=== PATIENT | male | born 1945 | race Caucasian/White ===

== ENCOUNTER 2016-10-21 10:07 | Inpatient (IN) | payer OTHER ==
[2016-10-03 10:24] VITALS: BMI 31.0
--- NOTE | 2016-10-03 11:03 | PAT Medication Instructions ---
Service Date Oct 03, 2016. Current Home Medication List Aspirin (Aspirin Ec), 81 MG PO QAM Atorvastatin (Lipitor), 40 MG PO QPM Cholecalciferol (Vitamin D3), 1 TAB PO QPM Lisinopril (Zestril), 10 MG PO QAM Lisinopril (Zestril), 20 MG PO QPM Metoprolol Tartrate (Lopressor) (Lopressor), 50 MG PO BID Multivitamin (Multivitamin), 1 TAB PO QAM Medication Instructions For Your Scheduled Surgery - Hold the following medications the morning of surgery: Multivitamin (Multivitamin), 1 TAB PO QAM Cholecalciferol (Vitamin D3), 1 TAB PO QPM Lisinopril (Zestril), 10 MG PO QAM - Take the following medications the morning of surgery with a sip of water: Metoprolol Tartrate (Lopressor) (Lopressor), 50 MG PO BID Aspirin (Aspirin Ec), 81 MG PO QAM (okay to continue per surgeon) - Take the following medications as scheduled the night before surgery: Lisinopril (Zestril), 20 MG PO QPM - Take the following medications as scheduled the night before surgery: Metoprolol Tartrate (Lopressor) (Lopressor), 50 MG PO BID Atorvastatin (Lipitor), 40 MG PO QPM If you have any questions please call us at [phone] (Bernie Lou PA-C) or [phone] or [phone]
[2016-10-03 11:39] LABS: BASO % 0.9 %; BASO ABS # 0.07 K/uL (0-0.2); COMPLETE YES; EOS % 1.6 %; HEMATOCRIT 38.5 % (42-52); IG% 0.4 %; LYMPH % 20.2 %; MEAN CELL VOLUME 92.1 fL (80-100); MEAN CORPUSCULAR HEMOGLOBIN 32.1 pg (25-34); MEAN CORPUSCULAR HGB CONC 34.8 g/dl (32-36); MEAN PLATELET VOLUME 10.1 fL (7.4-10.4); MONO % 15.7 %; NEUT % 61.2 %; PLATELET COUNT 233 K/uL (130-400); RED BLOOD COUNT 4.18 M/uL (4.7-6.1); WHITE BLOOD COUNT 7.92 K/uL (4.8-10.8)
[2016-10-03 11:41] LABS: URINE APPEARANCE CLEAR (CLEAR); URINE BILIRUBIN NEG (NEG); URINE COLOR DK YELLOW; URINE NITRITE NEG (NEG); URINE PH 5.5 (4.5-7.5); URINE SPECIFIC GRAVITY 1.018 (1.000-1.030); UROBILINOGEN NEG (NEG); ZZUR CULT IF INDIC CLEAN CATCH NO
[2016-10-03 11:42] LABS: MANUAL MICROSCOPIC REQUIRED? NO; REVIEW REQ? NO
[2016-10-03 11:55] LABS: INR 1.1 (0.9-1.1); PROTHROMBIN TIME (PATIENT) 11.8 SECONDS (9.0-12.0)
--- NOTE | 2016-10-03 11:56 | DIAGNOSTIC IMAGING REPORT ---
CHEST PREADMISSION(PA/LAT) CLINICAL HISTORY: Preoperative evaluation. COMPARISON STUDY: No previous studies for comparison. FINDINGS: Lung volumes are normal. Lungs are clear. There is no pneumothorax or pleural effusion. Pulmonary vascularity is normal. There are median sternotomy wires and clips from bypass grafting. Mild cardiomegaly is noted. IMPRESSION: 1. No acute cardiopulmonary findings. 2. Mild cardiomegaly. Electronically signed by: Saurav Lane M.D. 10/03/2016 11:54 AM Dictated Date/Time: 10/03/2016 11:53 AM
[2016-10-03 13:06] LABS: BUN/CREATININE RATIO 26.3 (10-20); CALCIUM 10.8 mg/dl (8.5-10.1); CREATININE 1.5 mg/dl (0.60-1.40); POTASSIUM 4.8 mmol/L (3.5-5.1)
--- NOTE | 2016-10-20 13:25 | HISTORY & PHYSICAL EXAMINATION ---
DATE OF ADMISSION: 10/21/2016 CHIEF COMPLAINT: Left hip pain. HISTORY OF PRESENT ILLNESS: Mr. River is a 70-year-old male with a multiple year history of pain in his left hip. The patient rates his pain at 5/10. He has pain with his daily activities. He has limited standing and walking tolerance. Pain is worse with weightbearing. The patient uses a cane to ambulate. He has had anti-inflammatories without relief. He has failed conservative treatment and is scheduled for left hip replacement. PAST MEDICAL HISTORY: Hypertension, hypercholesterolemia, and heart disease. He denies diabetes or DVT. PAST SURGICAL HISTORY: Triple bypass in 2012. SOCIAL HISTORY: He drinks 6 drinks per month. He denies tobacco use. He lives in a 2-story home. He is and retired. FAMILY HISTORY: Negative for DVT. Positive for CVA in his mother. MEDICATIONS: Aspirin 81 mg daily, multivitamin 1 daily, vitamin D3 1000 international units, lisinopril 10 mg, lisinopril 20 mg, atorvastatin 40 mg, calcium x1, metoprolol 50 mg twice daily. ALLERGIES: None. REVIEW OF SYSTEMS: See HPI. Ten other systems reviewed, all negative. PHYSICAL EXAMINATION: VITAL SIGNS: Height 5 feet 10 inches, weight 220 pounds, BMI is 32. GENERAL: This is a well-developed, well-nourished male who is alert and oriented x3. Mood and affect are appropriate. HEENT: Normocephalic, atraumatic. Mucous membranes are moist and intact. NECK: Supple without lymphadenopathy. HEART: Regular rate and rhythm without murmurs, rubs or gallops. Grade 2 systolic murmur. LUNGS: Clear to auscultation without wheezes or rhonchi. ABDOMEN: Soft and nontender. Bowel sounds are equal and active. EXTREMITIES: No ecchymosis, redness or warmth. Thigh and calf are soft and nontender. He walks with an antalgic gait. Range of motion of the hip reproduces pain in the groin. Range of motion is decreased. He is neurovascularly intact with +5/5 strength. X-RAY EXAMINATION: AP and lateral views show joint space narrowing and osteophyte formation. IMPRESSION: Degenerative joint disease, left hip. PLAN: The patient will be admitted for a left total hip arthroplasty. PCP is Dr. Luz. We will plan on aspirin for DVT prophylaxis.
[2016-10-21] VITALS (7 sets, daily range): BP systolic 117–153; BP diastolic 69–85; PULSE 61–87; TEMP 36.4–36.8; O2SAT 95–100; Ht 180.3 cm; Wt 101.5 kg
[~2016-10-21] VITALS: Ht 180.3 cm; Wt 101.5 kg
[2016-10-21] MEDS: TRANEXAMIC ACID INJ 1,000 MG in SODIUM CHLORIDE 0.9% 100ML 100 ML IV SCH ×2 (06:30→11:49)
[~2016-10-21 10:07] MED LIST: ACETAMINOPHEN 500 MG TAB PO SCH; ASPI81TA28 PO; ATOR-24 PO; BUPIVACAINE 0.5 % 5 MG/1 ML PF 10ML VIAL ONE; CEFAZOLIN 2000 MG/60 ML D5W 60 ML IV SCH; CeleBREX 200 MG CAP PO SCH; DEXAMETHASONE 4 MG TAB PO SCH; FAMOTIDINE 20 MG TAB PO SCH; GABAPENTIN 300 MG CAP PO SCH; LACTATED RINGER'S 1000ML 1,000 ML IV SCH; LISI-461 PO; LISI-725 PO; METO50TA16 PO; METOCLOPRAMIDE HCL 10 MG TAB PO SCH; MULT-506 PO; OXYCODONE HCL 10 MG TABCR (OXYCONTIN) PO SCH; POLYMYXIN B SULFATE 100,000 UNITS in NSS 100ML IR SCH; ROPIVACAINE 5MG/ML 30 ML 150 MG, BUPIVACAINE/EPINEPHR 0.5% MPF 30 ML, KETOROLAC TROMETH... INFIL SCH; VANCOMYCIN INJ 400 MG in NSS 100ML IR SCH; VTMD1000 PO
[2016-10-21] MEDS ORDERED: FENTANYL CITRATE INJ 50 MCG/1 ML 2 ML VIAL ONE (10:32)
[2016-10-21] MEDS ORDERED: LIDOCAINE HCL 2% 2 ML VIAL (20MG/ML) ONE (10:32)
[2016-10-21] MEDS ORDERED: MIDAZOLAM HCL 1 MG/ML 2ML VIAL ONE (10:32)
[2016-10-21] MEDS ORDERED: PROPOFOL IV EMULSION 10 MG/ML 20 ML VIAL IV ONE ×2 (10:32→13:55)
--- NOTE | 2016-10-21 11:23 | History & Physical Bridge Note ---
H&P Re-Evaluation Bridge Note: I have examined the patient, reviewed the History & Physical and in the interval since the performance of the History & Physical I have noted the following changes of clinical significance: No changes noted
[2016-10-21] MEDS ORDERED: POVIDONE-IODINE OP SOLN 30 ML BTL ONE (11:59)
[2016-10-21] MEDS ORDERED: ORTHO JOINT ANESTHETIC ONE (11:59)
[2016-10-21] MEDS ORDERED: BACITRACIN 50000 UNIT VIAL ONE (11:59)
[2016-10-21] MEDS ORDERED: EpHEDrine SULFATE 50MG/5ML SYR ONE (12:57)
[2016-10-21] MEDS ORDERED: DEXAMETHASONE SOD INJ 4 MG/ML VIAL ONE (12:58)
[2016-10-21] MEDS ORDERED: ONDANSETRON INJ 2 MG/ML 2 ML VIAL ONE (12:58)
[2016-10-21] MEDS ORDERED: PHENYLEPHRINE 100MCG/ML 5ML SYR IV PRN (14:00)
[2016-10-21] MEDS ORDERED: ONDANSETRON INJ 2 MG/ML 2 ML VIAL IV PRN ×2 (14:00→14:15)
[2016-10-21] MEDS ORDERED: ATROPINE SULFATE 0.1 MG/ML 5ML SYR IV PRN (14:00)
[2016-10-21] MEDS ORDERED: HYDROmorphone INJ 0.5 MG/0.5 ML SYR IV PRN (14:00)
[2016-10-21] MEDS ORDERED: KETOROLAC TROMETHAMINE 30 MG/ML VIAL IV. PRN (14:00)
--- NOTE | 2016-10-21 14:14 | [facility] Post Operative Brief Note ---
Immediate Operative Summary Operative Date Oct 21, 2016. Pre-Operative Diagnosis Left Hip Degenerative Joint Disease Post-Operative Diagnosis Left Hip Degenerative Joint Disease Procedure(s) Performed Left Total Hip Arthroplasty, Direct Anterior Approach Surgeon Dr. Manuel Sarkar Aerial Sprayer Surgeon(s) Ynes Mariee PA-C Estimated Blood Loss 125 mL Findings DJD Specimens A: Left Femoral Head Complication(s) None Disposition Recovery Room / PACU
[2016-10-21] MEDS ORDERED: ALUMINUM/MAGNESIUM/SIMETH (MAALOX MAX) 30 ML UDC PO PRN (14:15)
[2016-10-21] MEDS ORDERED: ZOLPIDEM TARTRATE 5 MG TAB PO PRN (14:15)
[2016-10-21] MEDS ORDERED: SOD PHOSPHATE/SOD BIPHOSPHATE ENEMA 132 ML BTL PR PRN (14:15)
[2016-10-21] MEDS ORDERED: OXYCODONE HCL IR 5 MG TAB (IMMEDIATE RELEASE) PO PRN (14:15)
[2016-10-21] MEDS ORDERED: METOCLOPRAMIDE HCL INJ 5 MG/ML 2 ML VIAL IV PRN (14:15)
[2016-10-21] MEDS ORDERED: TRAMADOL HCL 50 MG TAB PO PRN (14:15)
[2016-10-21] MEDS ORDERED: BISACODYL 10 MG SUPP PR PRN (14:15)
[2016-10-21] MEDS ORDERED: DiphenhydrAMINE HCL 50 MG/ML VIAL IV PRN (14:15)
[2016-10-21] MEDS ORDERED: MAGNESIUM HYDROXIDE SUSP 30 ML UDC PO PRN (14:15)
[2016-10-21] MEDS ORDERED: MoRPHine SULFATE 2 MG/ML CARP IV PRN (14:15)
--- NOTE | 2016-10-21 14:43 | DIAGNOSTIC IMAGING REPORT ---
INTRAOPERATIVE RADIOGRAPHS CLINICAL HISTORY: Left hip arthroplasty. Fluoroscopy time: 13 seconds. FINDINGS: 2 spot fluoroscopic views of the left hip from an arthroplasty procedure are presented. A bipolar left hip arthroplasty is in near anatomic alignment. A single cortical lag screw transfixes the acetabular cup. There is no evidence of acute fracture on these fluoroscopic images. IMPRESSION: Intraoperative image from a left hip arthroplasty procedure as above. Electronically signed by: Domingo Oneill M.D. 10/21/2016 2:41 PM Dictated Date/Time: 10/21/2016 2:40 PM
--- NOTE | 2016-10-21 14:59 | Anesthesiology Progress Note ---
Anesthesia Post Op Note Date & Time Oct 21, 2016 at 14:58 Vital Signs Pain Intensity: 0 Vital Signs Past 12 Hours Date Time Temp Pulse Resp B/P Pulse Ox O2 Delivery O2 Flow Rate FiO2 10/21/16 14:50 77 16 138/88 100 Mask 10 10/21/16 14:40 72 16 121/76 100 Mask 10 10/21/16 14:32 36.8 72 16 138/69 100 Mask 10 10/21/16 10:34 36.7 61 20 150/78 99 Room Air Notes Mental Status: alert / awake / arousable, participated in evaluation Pt Amnestic to Procedure: Yes Nausea / Vomiting: adequately controlled Pain: adequately controlled Airway Patency, RR, SpO2: stable & adequate BP & HR: stable & adequate Hydration State: stable & adequate Anesthetic Complications: no major complications apparent
--- NOTE | 2016-10-21 15:08 | DIAGNOSTIC IMAGING REPORT ---
AP PELVIS, CROSSTABLE LATERAL LEFT HIP History: Left total hip arthroplasty. Degenerative arthritis. Postop. FINDINGS: The patient is status post a left total hip arthroplasty. The hardware is intact. No fracture or dislocation. Surgical drains are in place. IMPRESSION: Left total hip arthroplasty. No evidence for hardware complication. Electronically signed by: Vj Islas M.D. 10/21/2016 3:05 PM Dictated Date/Time: 10/21/2016 3:05 PM
[2016-10-21] MEDS: D5W AND 1/2NSS + 20MEQ KCL 1,000 ML IV SCH (17:29)
--- NOTE | 2016-10-21 17:38 | OPERATIVE REPORT ---
DATE OF OPERATION: 10/21/2016 PREOPERATIVE DIAGNOSIS: Degenerative arthritis, left hip. POSTOPERATIVE DIAGNOSIS: Same. PROCEDURE: Left total hip replacement. SURGEON: Dr. Sarkar. ODD SHOE EXAMINER: CHARISSA Beltran ANESTHESIA: Spinal. BLOOD LOSS: 125 mL. REPLACEMENT FLUIDS: 1900 mL crystalloid. DRAINS: Hemovac x1. CULTURES: None. COMPLICATIONS: None. COMPONENTS USED: [employer] Polar hip system: Acetabulum size 56, femur size 5 lateral offset, femoral head -3, 36 mm. NOTE: Ynes Mariee was present and assisted throughout due to the complicated nature of this case. She helped with preparation and set up, first assisted throughout and personally closed the fascial, subcutaneous and skin layers and applied the postoperative dressing. DESCRIPTION OF PROCEDURE: Following satisfactory spinal, the patient was supine. The right leg was placed in the well leg cesar and the left leg in the traction device. The left leg was then prepared with ChloraPrep and draped sterilely. Following a surgical time-out, an anterior approach in the interval between the sartorius and tensor muscles was completed. Circumflex femoral vessels were identified and ligated. An anterior capsulotomy was performed exposing an arthritic femoral neck and head with a very inflamed capsule. The femoral neck and head were trimmed and removed. The acetabular self-retraining retractors were placed. Acetabular reaming was completed and under fluoroscopic guidance, a 56 shell was impacted into an anatomic position and secured with a dome screw. Local anesthetic was placed and after irrigation, the poly liner was placed. A small inferior osteophyte was removed. The femur was placed into a position of external rotation, extension and adduction. This allowed access to the proximal femur. The canal was prepared up to the size 5. A trial reduction with a -3 head using fluoroscopy showed good fit and fill of the proximal canal and restorationism of leg lengths using anatomic landmarks. The trial component was removed after the hip was dislocated. The wound was irrigated and the final implant was placed. The hip was reduced with fluoroscopy confirming the position. A Betadine soak was performed. After 5 minutes, the Betadine was irrigated. The capsule was closed with 1 Vicryl interrupted. A drain was then placed. The muscle fascia was closed with a running suture of 1 Vicryl, the subcutaneous tissues with 2-0 Vicryl and the skin with a running subcuticular stitch of 3-0 V-Loc. Dermabond and a dry dressing were applied. The patient was returned to his bed in stable condition. I attest to the content of the Intraoperative Record and any orders documented therein. Any exceptio ns are noted below.
[2016-10-21] MEDS: KETOROLAC TROMETHAMINE 15 MG/ML VIAL IV. SCH ×2 (17:40→23:45)
[2016-10-21] MEDS ORDERED: TRANEXAMIC ACID INJ 1,000 MG in SODIUM CHLORIDE 0.9% 100ML 100 ML IV ONE (20:00)
[2016-10-21] MEDS: CEFAZOLIN IV 2,000 MG in DEXTROSE 5% 50ML 50 ML IV SCH (20:25)
[2016-10-21] MEDS: ASPIRIN 81 MG ECTAB PO SCH (20:43)
[2016-10-21] MEDS: METOPROLOL TARTRATE 50 MG TAB PO SCH (20:43)
[2016-10-21] MEDS ORDERED: CHOLECALCIFEROL 1000 INTER.UNIT TAB PO SCH (21:00)
[2016-10-21] MEDS ORDERED: LISINOPRIL 20 MG TAB PO SCH (21:00)
[2016-10-21] MEDS ORDERED: ATORVASTATIN 40 MG TAB PO SCH (21:00)
[2016-10-21] MEDS ORDERED: SENNA 8.6 MG TAB PO SCH (21:00)
[2016-10-21] MEDS: ACETAMINOPHEN 500 MG TAB PO SCH (22:02)
[2016-10-22 00:08] VITALS: O2SAT 98
[2016-10-22 03:32] VITALS: BP 120/69; PULSE 69; TEMP 36.4; O2SAT 92
[2016-10-22] MEDS: D5W AND 1/2NSS + 20MEQ KCL 1,000 ML IV SCH ×2 (03:33→12:00)
[2016-10-22] MEDS: CEFAZOLIN IV 2,000 MG in DEXTROSE 5% 50ML 50 ML IV SCH (03:35)
[2016-10-22] MEDS: ACETAMINOPHEN 500 MG TAB PO SCH (05:15)
[2016-10-22] MEDS: KETOROLAC TROMETHAMINE 15 MG/ML VIAL IV. SCH (05:16)
[2016-10-22 06:01] LABS: COMPLETE YES; HEMATOCRIT 32.9 % (42-52); IG% 0.3 %; LYMPH % 3.7 %; LYMPH ABS # 0.56 K/uL (1.2-3.4); MEAN CELL VOLUME 95.4 fL (80-100); MEAN CORPUSCULAR HEMOGLOBIN 31.9 pg (25-34); MEAN CORPUSCULAR HGB CONC 33.4 g/dl (32-36); MEAN PLATELET VOLUME 10.1 fL (7.4-10.4); MONO % 5.2 %; NEUT % 90.8 %; PLATELET COUNT 208 K/uL (130-400); RED BLOOD COUNT 3.45 M/uL (4.7-6.1); WHITE BLOOD COUNT 15.07 K/uL (4.8-10.8)
[2016-10-22 06:35] LABS: BUN/CREATININE RATIO 15.5 (10-20); CALCIUM 8.6 mg/dl (8.5-10.1); CREATININE 2.2 mg/dl (0.60-1.40); POTASSIUM 4.7 mmol/L (3.5-5.1)
[2016-10-22 07:17] VITALS: BP 134/73; PULSE 66; TEMP 36.5; O2SAT 96
--- NOTE | 2016-10-22 08:43 | Discharge Instructions ---
Discharge Instructions Date of Service Oct 22, 2016. Admission Reason for Admission: Left Hip Degenerative Arthritis Discharge Discharge Diagnosis / Problem: SP LEFT ISAK Discharge Goals Goal(s): Decrease discomfort, Improve function, Increase independence Activity Recommendations Activity Limitations: per Instructions/Follow-up section . Instructions / Follow-Up Instructions / Follow-Up ACTIVITY RECOMMENDATIONS: SELF CARE INSTRUCTIONS AFTER TOTAL HIP REPLACEMENT : Direct Anterior Approach Until the incision and soft tissues around your hip have healed, there is a possibility that the hip prosthesis could dislocate. A. Hip flexion ( Up & Down out of chair or steps ) may be difficult. This is normal. B. Numbness in front of the thigh is also normal for a few weeks. C. Use hand rails when walking on stairs. D. Wear low heeled shoes with non-slip soles. E. Be sure that your floors are free of things that could trip you - throw rugs , electrical cords, small objects. Avoid wet and waxed floors, especially with crutches and canes. F. Try to walk several times a day with rest periods between. G. Continue with all the exercises taught to you in the hospital. Again, make walking a part of your daily routine. SPECIAL CARE INSTRUCTIONS: VERY IMPORTANT TO READ AND REVIEW A. You may still be at risk for phlebitis and blood clots. 1. Wear surgical stockings (KANDIS hose) for 2 weeks after surgery to improve circulation and reduce swelling. 2. Take Aspirin 81mg twice daily for 4 weeks or as directed by your doctor. This is your blood thinner. 3. High risk patients may be prescribed a stronger blood thinner if necessary. 4. If you are on Coumadin normally, your family doctor/sewage plant attendant should monitor your blood work. Expect a phone call the day of or the day after bloodwork is drawn to adjust your dosage. B. You must take antibiotics before having dental work, bladder, bowel and other surgery. Your doctor will provide you with a permanent card to carry describing precautions. C. Call [facility] if you have a fever, redness or swelling around the incision, cloudy drainage from incision, or sudden increase in pain in your hip, not relieved by your regular pain medication. D. Please call the office at if you have any concerns or questions about your operation or recovery. * YOU MAY SHOWER, NO TUB BATHS UNTIL CLEARED BY YOUR DOCTOR. - Keep an extra close eye on the top portion of your incision. Be sure to keep clean & dry. * WEAR KANDIS HOSE 20 HOURS PER DAY FOR 2 WEEKS. * YOU MAY PROGRESS FROM A WALKER, TO A CANE, TO INDEPENDENT AT YOUR OWN PACE. * MOST PATIENTS WILL HAVE HOME NURSING FOR THERAPY. IF YOU DECIDE TO DO OUTPATIENT PHYSICAL THERAPY, PLEASE SCHEDULE THIS 3 TIMES PER WEEK. * DERMABOND Prineo- This is a mesh tape dressing that is covered with glue. It should remain in place until the incision is properly healed, usually 10-14 days. This dressing is designed to naturally slough off. You may trim the excess mesh tape as it peels off. Incision may be briefly wet in a shower. Dry immediately by blotting with a clean, dry towel. Do not bath or swim until instructed by your doctor. Do not scratch, rub, or pick at the dressing. Do not apply any topical ointments or lotions until dressing is completely removed and/or instructed by your doctor. There may be a small piece of suture material at one end of your incision. Do not pull or trim this. If it is bothersome or catching on clothing, you may cover it with a band-aid. FOLLOW UP VISIT: If appointment is not already scheduled: Please call [facility] to make a follow-up appointment for 2 weeks after your surgery at . Current Hospital Diet Patient's current hospital diet: Regular Diet Discharge Diet Recommended Diet: Regular Diet Procedures Procedures Performed: Left Total Hip Arthroplasty, Direct Anterior Approach Pending Studies Studies pending at discharge: no Medical Emergencies . Who to Call and When: Medical Emergencies: If at any time you feel your situation is an emergency, please call 911 immediately. . Non-Emergent Contact Non-Emergency issues call your: Surgeon . "Provider Documentation" section prepared by Ynes Mariee. . VTE Core Measure Inpt VTE Proph given/why not?: Other Anticoagulation, T.E.D. Javier, SCD's [place] Drug Monitoring Program Search Results: patient reviewed within database, no issues identified
[2016-10-22] MEDS ORDERED: RXC5 PO (08:45)
[2016-10-22] MEDS ORDERED: ONDA8TAB6 PO (08:45)
[2016-10-22] MEDS ORDERED: ASPI81TA28 PO (08:45)
[2016-10-22] MEDS ORDERED: SNK PO (08:45)
[2016-10-22] MEDS ORDERED: ACET-1138 PO (08:45)
--- NOTE | 2016-10-22 08:47 | DISCHARGE SUMMARY ---
DATE OF DISCHARGE: 10/22/2016. DISCHARGE DIAGNOSIS: Degenerative joint disease, left hip. SECONDARY DIAGNOSIS: None. CONSULTS: None. COMPLICATIONS: None. PROCEDURE: The patient underwent a direct anterior left total hip arthroplasty with Dr. Sarkar on 10/21/2016. COMPLICATIONS: None. BRIEF HISTORY: Please see previously dictated history and physical. HOSPITAL SUMMARY: The patient was admitted on the above day for the above procedure. Procedure went without complication. Postop day 1, the patient was feeling well without complaints. He denied chest pain or shortness of breath. Vital signs were stable. He was afebrile. Dressing was clean, dry and intact. He was neurovascularly intact. Calves were soft and nontender. Hemovac drained 20 and 60 mL. Hemoglobin was 11. The patient began physical therapy per protocol. He was discharged home later that day in stable condition. For further review please see the chart. Lab, x-ray data and discharge instructions as per chart.
[2016-10-22] MEDS ORDERED: MULTIVITAMIN TAB PO SCH (09:00)
[2016-10-22] MEDS ORDERED: LISINOPRIL 10 MG TAB PO SCH (09:00)
[2016-10-22] MEDS ORDERED: PANTOprazole SOD 40 MG TAB PO SCH (09:00)
[2016-10-22] MEDS: ASPIRIN 81 MG ECTAB PO SCH (09:27)
[2016-10-22 09:29] VITALS: BP 134/72; PULSE 76
[2016-10-22] MEDS: METOPROLOL TARTRATE 50 MG TAB PO SCH (09:30)
[2016-10-22 10:43] VITALS: BP 126/74; PULSE 73; TEMP 36.8; O2SAT 97
--- NOTE | 2016-10-22 11:12 | Anesthesiology Progress Note ---
Anesthesia Post Op Note Date & Time Oct 22, 2016 at 11:10 Vital Signs Pain Intensity: 2.0 Vital Signs Past 12 Hours Date Time Temp Pulse Resp B/P Pulse Ox O2 Delivery O2 Flow Rate FiO2 10/22/16 10:43 36.8 73 16 126/74 97 Room Air 10/22/16 09:29 76 134/72 10/22/16 07:45 Room Air 10/22/16 07:17 36.5 66 16 134/73 96 Room Air 10/22/16 03:32 36.4 69 16 120/69 92 Room Air 10/22/16 00:08 98 Nasal Cannula 2.0 Notes Mental Status: alert / awake / arousable, participated in evaluation Pt Amnestic to Procedure: Yes Nausea / Vomiting: adequately controlled Pain: adequately controlled Airway Patency, RR, SpO2: stable & adequate BP & HR: stable & adequate Hydration State: stable & adequate Neuraxial Anesthesia: sensory block resolved Anesthetic Complications: no major complications apparent
[2016-10-22 12:18] VITALS: BP 126/74; PULSE 73; TEMP 36.8; O2SAT 97
[2016-10-23] MEDS ORDERED: CeleBREX 200 MG CAP PO SCH (21:00)
== END 2016-10-22 13:05 | disposition home health service (06) | DRG 470 ==
LOC: ENRESERVTM → ENRESERVDT → C.ACU 10:07 → C.3E 11:30
PROVIDERS: ADMIT Orthopaedic Surgery; ATTEND Orthopaedic Surgery
PROC: 0SRB04Z Replacement of Left Hip Joint with Ceramic on Polyethylene Synthetic Substitute, Open Approach (ICD-10-PCS; principal; 2016-10-21 12:15)
DX: M16.12 Unilateral primary osteoarthritis, left hip (principal); E78.00 Pure hypercholesterolemia, unspecified; I10 Essential (primary) hypertension; R01.1 Cardiac murmur, unspecified; I25.10 Atherosclerotic heart disease of native coronary artery without angina pectoris; E66.9 Obesity, unspecified; I35.0 Nonrheumatic aortic (valve) stenosis; M54.10 Radiculopathy, site unspecified; Z79.82 Long term (current) use of aspirin; Z68.31 Body mass index [BMI] 31.0-31.9, adult; Z95.1 Presence of aortocoronary bypass graft; Z79.899 Other long term (current) drug therapy

== ENCOUNTER → 2017-08-20 | Day surgery (SDC) | payer OTHER ==
[2017-08-04 13:27] VITALS: BMI 31.0
--- NOTE | 2017-08-04 14:08 | PAT Medication Instructions ---
Service Date Aug 04, 2017. Current Home Medication List Acetaminophen (Tylenol), 1,000 MG PO PRN Aspirin (Aspirin Ec), 81 MG PO QAM Atorvastatin (Lipitor), 40 MG PO QPM Cholecalciferol (Vitamin D3), 1 TAB PO QPM Lisinopril (Zestril), 10 MG PO QAM Lisinopril (Zestril), 20 MG PO QPM Metoprolol Tartrate (Lopressor) (Lopressor), 50 MG PO BID Multivitamin (Multivitamin), 1 TAB PO QAM Tamsulosin Hcl (Flomax), 0.4 MG PO QPM Medication Instructions For Your Scheduled Surgery - Contact your steam train driver for instructions for: Aspirin (Aspirin Ec), 81 MG PO QAM (OK to continue per anesthesia) - Hold the following medications the morning of surgery: Multivitamin (Multivitamin), 1 TAB PO QAM Lisinopril (Zestril), 10 MG PO QAM - Take the following medications the morning of surgery with a sip of water: Metoprolol Tartrate (Lopressor) (Lopressor), 50 MG PO BID Acetaminophen (Tylenol), 1,000 MG PO PRN (if needed, can be taken up to four hours before surgery) - Take the following medications as scheduled the night before surgery: Tamsulosin Hcl (Flomax), 0.4 MG PO QPM Metoprolol Tartrate (Lopressor) (Lopressor), 50 MG PO BID Lisinopril (Zestril), 20 MG PO QPM Atorvastatin (Lipitor), 40 MG PO QPM Cholecalciferol (Vitamin D3), 1 TAB PO QPM Acetaminophen (Tylenol), 1,000 MG PO PRN (if needed) If you have any questions please call us at [phone] or [phone] or [phone]
--- NOTE | 2017-08-04 14:47 | DIAGNOSTIC IMAGING REPORT ---
CHEST 2 VIEWS ROUTINE CLINICAL HISTORY: 71 years-old Male presenting with preoperative assessment. TECHNIQUE: PA and lateral views of the chest were obtained. COMPARISON: 10/03/2016. FINDINGS: Median sternotomy wires and mediastinal surgical clips unchanged. Atherosclerosis of aortic arch. Cardiac silhouette mildly enlarged. Lungs and pleural spaces clear. Degenerative changes of the spine and acromioclavicular joints. Upper abdomen normal. IMPRESSION: 1. No acute cardiopulmonary disease. Electronically signed by: Tommie Etienne M.D. 08/04/2017 2:45 PM Dictated Date/Time: 08/04/2017 2:44 PM
[2017-08-04 14:57] LABS: BASO % 0.8 %; BASO ABS # 0.05 K/uL (0-0.2); EOS % 2.1 %; EOS ABS # 0.14 K/uL (0-0.5); HEMOGLOBIN 13.2 g/dL (14.0-18.0); IG# 0.01 K/uL (0.00-0.02); LYMPH % 28.5 %; LYMPH ABS # 1.88 K/uL (1.2-3.4); MEAN CELL VOLUME 93.7 fL (80-100); MEAN CORPUSCULAR HEMOGLOBIN 30.9 pg (25-34); MEAN PLATELET VOLUME 10.6 fL (7.4-10.4); MONO % 12.9 %; MONO ABS # 0.85 K/uL (0.11-0.59); NEUT % 55.5 %; NEUT ABS # 3.66 K/uL (1.4-6.5); PLATELET COUNT 243 K/uL (130-400); RED CELL DISTRIBUTION WIDTH CV 13.8 % (11.5-14.5); RED CELL DISTRIBUTION WIDTH SD 47.3 fL (36.4-46.3); WHITE BLOOD COUNT 6.59 K/uL (4.8-10.8)
[2017-08-04 15:36] LABS: CALCIUM 9.7 mg/dl (8.5-10.1); CREATININE 1.2 mg/dl (0.60-1.40); POTASSIUM 4.3 mmol/L (3.5-5.1)
[~2017-08-20] VITALS: Ht 177.8 cm; Wt 99.5 kg
[~2017-08-20] MED LIST changes: +ACET-1256 PO; -ACETAMINOPHEN 500 MG TAB PO SCH; +ATROPINE SULFATE 0.1 MG/ML 5ML SYR IV PRN; +BELLADONNA/OPIUM SUPP 60 MG SUPP PR ONE; -BUPIVACAINE 0.5 % 5 MG/1 ML PF 10ML VIAL ONE; -CEFAZOLIN 2000 MG/60 ML D5W 60 ML IV SCH; +CIPR-255 PO; +CIPROFLOXACIN / D5W 400 MG IV SCH; -CeleBREX 200 MG CAP PO SCH; +Cysto-Conray II 17.2% 250ML BOTTLE ONE; -DEXAMETHASONE 4 MG TAB PO SCH; +DEXAMETHASONE SOD INJ 4 MG/ML VIAL ONE; +EpHEDrine SULFATE INJ 50 MG/ML AMP IV PRN; +EpHEDrine SULFATE INJ 50 MG/ML AMP ONE; -FAMOTIDINE 20 MG TAB PO SCH; +FENTANYL CITRATE INJ 50 MCG/1 ML 2 ML VIAL IV PRN; +FENTANYL CITRATE INJ 50 MCG/1 ML 2 ML VIAL ONE; -GABAPENTIN 300 MG CAP PO SCH; +GLYCOPYRROLATE INJ 0.2 MG/ML VIAL ONE; +LIDOCAINE HCL 2% 2 ML VIAL (20MG/ML) ONE; -METOCLOPRAMIDE HCL 10 MG TAB PO SCH; +MIDAZOLAM HCL 1 MG/ML 2ML VIAL ONE; +MITOMYCIN FOR INJ 40 MG in SYRINGE 40 ML IR SCH; +ONDANSETRON INJ 2 MG/ML 2 ML VIAL IV PRN; +ONDANSETRON INJ 2 MG/ML 2 ML VIAL ONE; +OXYC7.5T65 PO; -OXYCODONE HCL 10 MG TABCR (OXYCONTIN) PO SCH; +OXYCODONE/ACETAMINOPHEN 5-325 TAB PO PRN; +PHEN-775 PO; +PHENAZOPYRIDINE HCL 200 MG TAB PO PRN; -POLYMYXIN B SULFATE 100,000 UNITS in NSS 100ML IR SCH; +PROPOFOL IV EMULSION 10 MG/ML 20 ML VIAL IV ONE; -ROPIVACAINE 5MG/ML 30 ML 150 MG, BUPIVACAINE/EPINEPHR 0.5% MPF 30 ML, KETOROLAC TROMETH... INFIL SCH; +TAMS0.4C38 PO; -VANCOMYCIN INJ 400 MG in NSS 100ML IR SCH
[2017-08-20 12:20] VITALS: BP 148/64; PULSE 54; TEMP 36.5; O2SAT 100; Ht 177.8 cm; Wt 99.5 kg
--- NOTE | 2017-08-20 14:48 | [facility] Post Operative Brief Note ---
Immediate Operative Summary Operative Date Aug 20, 2017. Pre-Operative Diagnosis Bladder Neoplasm, Benign Prostatic Hyperplasia, Gross Hematuria Post-Operative Diagnosis Bladder Neoplasm, Benign Prostatic Hyperplasia, Gross Hematuria Procedure(s) Performed Meatal Dilation, Cystoscopy, Bilateral Retrograde Pyelography, Right Diagnostic Semi Rigid Ureteroscopy, Transurethral Resection Bladder Tumor, Right Ureteral Stent Placement, Cold Cup Bladder Biopsies, Bladder Fulgeration, Instillation of Mytomycin Surgeon Dr Supa Sharpe Information Security Consultant Surgeon(s) none Estimated Blood Loss 30 cc Findings Consistent with Post-Op Diagnosis Specimens A: Right bladder neck biopsy B: Left bladder neck tumor C: Anterior bladder neck D: Posterior bladder biopsy Drains R 6 fr multilength ureteral stent, 20 fr torrez 10 cc H2O Anesthesia Type General Complication(s) none Disposition Accompanied Pt To Recover: no Disposition: Recovery Room / PACU
--- NOTE | 2017-08-20 15:06 | DIAGNOSTIC IMAGING REPORT ---
INTRAOPERATIVE RADIOGRAPHS CLINICAL HISTORY: Bilateral retrograde ureterogram and right ureteral stent placement. Fluoroscopy time: 143 seconds. FINDINGS: 10 spot fluoroscopic views of the abdomen from a bilateral retrograde ureterogram and right ureteral stent procedure are correlated with abdominal CT dated 05/29/2017. There is no hydronephrosis seen on the left. There is fullness of the right renal collecting system identified. The ureters appear well opacified. The final image shows the proximal end of a right ureteral stent being deployed. IMPRESSION: Intraoperative images from a bilateral retrograde ureterogram and right ureteral stent procedure as above. See operative report for detailed findings. Electronically signed by: Domingo Oneill M.D. 08/20/2017 3:05 PM Dictated Date/Time: 08/20/2017 3:03 PM
--- NOTE | 2017-08-20 15:15 | Discharge Instructions ---
Discharge Instructions Date of Service Aug 20, 2017. Admission Reason for Admission: Bladder Tumor Discharge Discharge Diagnosis / Problem: Bladder tumor s/p TURBT, R diagnostic uscope Discharge Goals Goal(s): Improve disease control, Diagnostic testing, Therapeutic intervention Activity Recommendations Activity Limitations: as noted below Lifting Limitations: no more than 25 pounds, gradually increase as tolerated Exercise/Sports Limitations: rest today, gradually increase as tolerated May Resume Sexual Activity: after two weeks Shower/Bathe: no limitations Driving or Machine Use: resume 1 day after discharge . Instructions / Follow-Up Instructions / Follow-Up As scheduled in office for pathology discussion and stent removal Current Hospital Diet Patient's current hospital diet: Discharge Diet Recommended Diet: Regular Diet (good fluid intake) Procedures Procedures Performed: Meatal Dilation, Cystoscopy, Bilateral Retrograde Pyelography, Right Diagnostic Semi Rigid Ureteroscopy, Transurethral Resection Bladder Tumor, Right Ureteral Stent Placement, Cold Cup Bladder Biopsies, Bladder Fulgeration, Instillation of Mytomycin Pending Studies Studies pending at discharge: yes List of pending studies: Pathology reports Medical Emergencies . Who to Call and When: Medical Emergencies: If at any time you feel your situation is an emergency, please call 911 immediately. . Non-Emergent Contact Non-Emergency issues call your: Urologist Call Non-Emergent contact if: you have a fever, temperature is above 101, your pain is not controlled, your pain is worsening, your pain is unusual for you, your pain is concerning you, you have any medication questions . . "Provider Documentation" section prepared by Supa Sharpe. . VTE Core Measure Inpt VTE Proph given/why not?: SCD's [place] Drug Monitoring Program Search Results: patient reviewed within database, no issues identified
[2017-08-20 15:40] VITALS: BP 164/82; PULSE 72; TEMP 36.3; O2SAT 98
--- NOTE | 2017-08-20 15:42 | Anesthesiology Progress Note ---
Anesthesia Post Op Note Date & Time Aug 20, 2017 at 15:42 Vital Signs Pain Intensity: 0 Vital Signs Past 12 Hours Date Time Temp Pulse Resp B/P (MAP) Pulse Ox O2 Delivery O2 Flow Rate FiO2 08/20/17 15:35 71 15 157/75 98 Room Air 08/20/17 15:30 36.4 71 16 158/65 97 Nasal Cannula 3 08/20/17 15:20 74 16 154/78 95 Oxymask 3 08/20/17 15:10 75 16 150/77 98 Oxymask 5 08/20/17 15:00 36.3 90 14 147/83 97 Oxymask 10 08/20/17 12:20 36.5 54 18 148/64 (92) 100 Room Air Notes Mental Status: alert / awake / arousable, participated in evaluation Pt Amnestic to Procedure: Yes Nausea / Vomiting: adequately controlled Pain: adequately controlled Airway Patency, RR, SpO2: stable & adequate BP & HR: stable & adequate Hydration State: stable & adequate Anesthetic Complications: no major complications apparent
--- NOTE | 2017-08-20 16:07 | [facility] Operative Report ---
Operative Report Operative Date Aug 20, 2017. Pre-Operative Diagnosis Bladder Tumor Post-Operative Diagnosis Bladder Tumor, Abnormal Cystoscopy, R stenotic distal ureter. Procedure(s) Performed Meatal Dilation, Cystoscopy, Bilateral Retrograde Pyelography, Right Diagnostic Semi Rigid Ureteroscopy, Transurethral Resection Bladder Tumor, Right Ureteral Stent Placement, Cold Cup Bladder Biopsies, Bladder Fulguration, Instillation of Mitomycin C Surgeon Dr Supa Sharpe Stone Driller Helper Surgeon(s) none Estimated Blood Loss 30 cc Findings Tight right distal ureter on retrograde pyelography with plan stenosis on ureteroscopic evaluation, small right distal ureteral false passage with some extravasation of contrast, good stent position on fluoroscopic examination and direct visualization within the bladder, no bladder perforation on resection, numerous areas of vellous abnormal mucosa. 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 He has no previous history of bladder cancer. Please see H&P for further details. Patient has not had a contrast study previously so retrograde pyelography is planned intraoperatively today. Intravenous ciprofloxacin was provided for antibiotic coverage and SCDs used for DVT prophylaxis. Description of Procedure Patient was properly identified and brought into the operative suite after identification of appropriate consent in the chart. General anesthesia with laryngeal mask was initiated and patient was prepped and draped in the standard fashion for this procedure. Full timeout procedure was followed. Attempts at passing the rigid cystoscope met with resistance at the level of the meatus which was dilated to a 30 Panamanian caliber to allow for easy passage of the cystoscope and resectoscope. A moderately obstructive prostate gland was noted without significant intravesical extension. Papillary bladder mass on the left- hand side with areas of velvety mucosa on the posterior and lateral boudreaux were appreciated consistent with previous office cystoscopic findings. Ureteral orifice on the left was noted to be clear of the patient's left bladder tumor. Some borderline mucosa was noted to be present around the right ureteral orifice with a smaller caliber to the orifice. Retrograde pyelography via a cone-tip catheter on the right-hand side demonstrated some questionable extravasation of contrast so attention was turned to the left first. This was able to be cannulated using a 5 Panamanian open-ended catheter and gentle retrograde pyelography demonstrated a normal caliber ureter and renal pelvis without filling defects or dilation. Attention was turned to the right-hand side where the ureter was accessed using an angled sensor tip wire a 5 Panamanian open-ended catheter. Retrograde pyelography demonstrated a normal renal pelvis without hydronephrosis and a normal proximal and mid ureter. In the distal ureter there was a question of some tightness to the ureteral caliber so decision was made to evaluate the ureter using a semirigid ureteroscope to ensure a lack of urothelial malignancy or involvement. Semirigid ureteroscope was able to be introduced into the ureter without the need for dilation. A small false passage was noted in the intramural ureter with no significant disruption. The rest of the ureter up to the level of the vessels was noted to be free of any tumor but simply mildly stenotic in its caliber. Complete exit ureteroscopy was performed without additional findings and a 6 [place]amanian multilength ureteral stent was advanced with redundant coil being present within the right renal pelvis and a full coil present within the bladder. Cold cup biopsy forceps were used to take exhibit display representative samples of mucosa in the periureteral region which is felt to be borderline which were sent for pathologic analysis. Cystoscope was removed and the 27 [place]amanian bipolar resectoscope was introduced using the visual obturator. Bipolar button was used to fulgurate the abnormal appearing areas of the right bladder neck with excellent hemostasis. Left bladder neck tumor was resected in its entirety and sent for pathologic analysis. Small papillary tumors on the anterior bladder neck were also resected and sent for separate pathologic analysis. Cold cup forceps were reintroduced using a cystoscopic bridge and areas of the posterior bladder wall with velvety mucosa were biopsied and sent for analysis. Bipolar button was reintroduced in visible areas of abnormal mucosa were fulgurated for hemostasis and ablation of possible CIS. After this was complete excellent hemostasis was appreciated without evidence of bladder perforation. No significant areas of residual abnormal mucosa were noted. No evidence of residual tumor specimen was present within the bladder. Resectoscope was removed and a 20 Panamanian Torrez catheter was introduced with 10 cc of sterile water return of clear irrigant. 40 mg of mitomycin-C were placed within the bladder and 40 cc of water which was then clamped. Belladonna and opium suppository was provided for additional postoperative analgesia. Anesthesia was reversed and patient was transferred to the recovery room in stable condition. Follow-up: Patient's bladder will be drained and try to avoid undertaken approximately 1.5 hours after placement of chemotherapy. Prescription for ciprofloxacin, Percocet and Pyridium are provided for postoperative coverage. Postoperative appointment is confirmed and stent will be removed at that time. Patient is instructed to contact our service should he note any fevers, chills, nausea, vomiting or other difficulties in the postoperative period. I attest to the content of the Intraoperative Record and any orders documented therein. Any exceptions are noted below.
[2017-08-20 16:10] VITALS: BP 172/88; PULSE 68; TEMP 36.4; O2SAT 96
[2017-08-20 16:40] VITALS: BP 163/78; PULSE 70; TEMP 36.4; O2SAT 98
[2017-08-20 17:40] VITALS: BP 160/70; PULSE 65; TEMP 36.4; O2SAT 98
== END | disposition home or self-care (01) ==
LOC: C.ACU 11:45
PROVIDERS: ATTEND Urology
DX: D09.0 Carcinoma in situ of bladder (principal); C67.5 Malignant neoplasm of bladder neck; N40.1 Benign prostatic hyperplasia with lower urinary tract symptoms; R35.1 Nocturia; R31.0 Gross hematuria; I25.10 Atherosclerotic heart disease of native coronary artery without angina pectoris; I10 Essential (primary) hypertension; E78.5 Hyperlipidemia, unspecified; Z68.31 Body mass index [BMI] 31.0-31.9, adult; E66.9 Obesity, unspecified; Z95.1 Presence of aortocoronary bypass graft; Z98.890 Other specified postprocedural states; Z79.82 Long term (current) use of aspirin; Z79.899 Other long term (current) drug therapy; Z83.3 Family history of diabetes mellitus; Z82.49 Family history of ischemic heart disease and other diseases of the circulatory system; Z80.52 Family history of malignant neoplasm of bladder

== ENCOUNTER → 2018-01-06 | Outpatient (CLI) | payer OTHER ==
[~2018-01-06] MED LIST changes: -ATROPINE SULFATE 0.1 MG/ML 5ML SYR IV PRN; -BELLADONNA/OPIUM SUPP 60 MG SUPP PR ONE; -CIPROFLOXACIN / D5W 400 MG IV SCH; -Cysto-Conray II 17.2% 250ML BOTTLE ONE; -DEXAMETHASONE SOD INJ 4 MG/ML VIAL ONE; -EpHEDrine SULFATE INJ 50 MG/ML AMP IV PRN; -EpHEDrine SULFATE INJ 50 MG/ML AMP ONE; -FENTANYL CITRATE INJ 50 MCG/1 ML 2 ML VIAL IV PRN; -FENTANYL CITRATE INJ 50 MCG/1 ML 2 ML VIAL ONE; -GLYCOPYRROLATE INJ 0.2 MG/ML VIAL ONE; -LACTATED RINGER'S 1000ML 1,000 ML IV SCH; -LIDOCAINE HCL 2% 2 ML VIAL (20MG/ML) ONE; -MIDAZOLAM HCL 1 MG/ML 2ML VIAL ONE; -MITOMYCIN FOR INJ 40 MG in SYRINGE 40 ML IR SCH; -ONDANSETRON INJ 2 MG/ML 2 ML VIAL IV PRN; -ONDANSETRON INJ 2 MG/ML 2 ML VIAL ONE; -OXYCODONE/ACETAMINOPHEN 5-325 TAB PO PRN; -PHEN-775 PO; -PHENAZOPYRIDINE HCL 200 MG TAB PO PRN; -PROPOFOL IV EMULSION 10 MG/ML 20 ML VIAL IV ONE
== END | disposition home or self-care (01) ==
LOC: C.PATHSPEC 17:57
PROVIDERS: ATTEND Urology
DX: N30.80 Other cystitis without hematuria (principal)

== ENCOUNTER 2019-01-17 05:56 | Inpatient (IN) ==
--- NOTE | 2019-01-03 09:04 | Anesthesiology Consultation ---
Date of Service January 03, 2019 Assessment & Plan (1) Encounter for pre-operative examination: - Cardio: 12/28/18: "cleared at a low to moderate risk for surgery." - PCP: 01/12/19: s/p CABG x 3 (2012). "He is cleared for surgery at moderate risk." - Mildly elevated glucose 153 on preop labs: no known hx diabetes. Will recheck BSG AM DOS. - Aortic stenosis: "Mild" per 12/28/18 ECHO; AYLIN 1.11cm2*, MG 18mmhg Chart Review Chart Review: Acceptable Risk for Surgery and Patient seen in Pre Admission Testing Teaching & Discussion Pre-Anesthesia Teaching/Discussion Notes: Instructed NPO after midnight before surgery,except medications with 15 cc of water. Medication instructions provided according to the PAT guidelines. History Surgery Operation Date: 01/17/19 08:30 Proposed Procedures p Right Total Hip Arthroplasty - Kenroy Sin Height/Weight Height: 5 ft 10 in Weight: 100.5 kg Allergies Allergy/AdvReac Type Severity Reaction Status Date / Time No Known Allergies Allergy Unverified 12/31/18 10:03 Medications Home Medications Medication Instructions Recorded Confirmed Last Taken aspirin 81 mg PO QAM 12/31/18 12/31/18 Unknown atorvastatin 20 mg PO PM 12/31/18 12/31/18 Unknown cholecalciferol (vitamin D3) 1,000 unit PO PM 12/31/18 12/31/18 Unknown [Vitamin D3] lisinopril 10 mg PO QAM 12/31/18 12/31/18 Unknown lisinopril 20 mg PO QPM 12/31/18 12/31/18 Unknown metoprolol tartrate 50 mg PO BID 12/31/18 12/31/18 Unknown multivitamin 1 tab PO QAM 12/31/18 12/31/18 Unknown Past Medical History Medical History Aortic stenosis "Mild" per 12/28/18 ECHO; AYLIN 1.11cm2, MG 18mmhg CAD (coronary artery disease) CABG X 3 (2012) Hearing deficit B/L PEREZ History of bladder cancer S/P SX, BCG TREATMENTS History of coronary artery bypass graft CABG X 3 (2012) History of gout History of skin cancer REMOVED Hyperlipidemia Hypertension Osteoarthritis Exercise / Class Metabolic Activity II 4-5 Yardwork/Stairs/Walk up hill Past Family History Family History Mother Family history of diabetes mellitus Grandmother (Maternal) Family history of diabetes mellitus Brother Family hx of colon cancer Uncle Family hx of colon cancer Family/Other Family hx of colon cancer COUSIN Past Surgical History Surgical History History of arthroscopy of right knee History of cardiac cath 2012- subsequent CABG X 3 2016- medical management recommended History of carpal tunnel release BL History of colonoscopy W/ POLYPECTOMY History of cystoscopy MULTIPLE History of foot surgery LEFT FOOT X 15 History of left hip replacement Left ISAK: 10/21/16: SAB at [facility] History of repair of rotator cuff BL History of surgery TURBT: 08/20/17: LMA#5 at [facility] History of tooth extraction Status post tendon repair RT ELBOW Past Anesthesia History No Hx of Anesthesia Complications and No Family Hx of Anesthesia Complications History of PONV No Hx of PONV and No Hx of Motion Sickness Social History Smoking Status: Former smoker tobacco type: cigarettes Do You Dip or Chew Tobacco: Yes (RARE- ADVISED NPO) Smoking End Date: QUIT 15 YEARS AGO Hx Alcohol Use: Yes Alcohol type: beer alcohol intake frequency: a few times a week Hx Substance Use: No substance use type: does not use Review of Systems Patient denies chest pain, shortness of breath, reflux, cough, wheezing, palpitations. Physical Exam Vital Signs VITALS BP 156/77 P 57 TEMP 97.8 SP02 97%RA RESP 18 PHYSICAL Full neck and c-spine range of motion. Full TMJ range of motion. TMD 3 finger breaths Mallampati Score 2 Dentition: full dentures upper/lower Lungs: clear throughout to auscultation Cardiac: regular rate and rhythm, no murmurs noted Spine: normal Carotid arteries: negative bruit Extremities: no edema Medium length eden (advised to trim; patient seems resistant*; patient agreeable to "cleaning up" eden. Advised patient potential for need to further trim AM DOS/possible cancellation based on anesthesiologist decision AM DOS regarding eden- Case reviewed with Dr. Christianson-- okay to proceed) Testing Laboratory Results 01/03/19 09:14 01/03/19 09:14 PT 11.4 Seconds (9.0-12.0) 01/03/19 09:14 INR 1.1 (0.9-1.1) 01/03/19 09:14 APTT 26.5 Seconds (21.0-31.0) 01/03/19 09:14 Urine Color Yellow 01/03/19 09:14 Urine Appearance Clear (Clear) 01/03/19 09:14 Urine pH 5.5 (4.5-7.5) 01/03/19 09:14 Ur Specific [place] 1.016 (1.000-1.030) 01/03/19 09:14 Urine Protein Negative (Negative) 01/03/19 09:14 Urine Glucose (UA) Negative (Negative) 01/03/19 09:14 Urine Ketones Negative (Negative) 01/03/19 09:14 Urine Nitrite Negative (Negative) 01/03/19 09:14 Ur Leukocyte Esterase Negative (Negative) 01/03/19 09:14 Blood Type O Negative 01/03/19 09:14 Antibody Screen NEGATIVE 01/03/19 09:14 01/03/19 09:14 Urine Culture - Final Urine,Clean Catch No growth - less than 1,000 colonies/mL. Electrocardiogram Date: 12/28/18 SB at 59bpm. First degree AVB. iRBBB. Chest X-Ray Date: 01/03/19 Findings: + NAD Median sternotomy wires and mediastinal surgical clips noted. Atherosclerosis of the aortic arch. Cardiac silhouette mildly enlarged. Lungs and pleural spaces clear. Degenerative changes of the thoracic spine. Degenerative changes of the shoulders. Echocardiogram Date: 12/28/18 EF 60%. Mild LAD. Grade 2 DD. Thickened MV with mitral annular calcification. Mild to moderate MR. "Mild" aortic stenosis (AYLIN 1.1cm, MG 18mmhg). RVSP 35mmhg. cLVH. Cardiac Catheterization Date: 03/06/16 LVEF 50%. Mild anterior wall HK. Left main is angiographically normal. LAD totally occluded proximally. LCx 90% proximal stenosis. RCA totally occluded in midportion. TIERNEY to LAD widely patent anastomotic site "looks good." Reverse SVG to OM: mild intimal hyperplasia; widely patent. Reverse SVG to PFA: mils intimal hyperplasia and PDA is widely patent. Angiographically 3V occlusive coronary disease. Patent grafts to LAD, OM, PDA. Per report, "Given present coronary anatomy should be managed medically.. aggressive risk factor modification should be maintained."
--- NOTE | 2019-01-03 09:14 | PAT Medication Instructions ---
Medication Instructions Date of Service January 03, 2019 Home Medications aspirin 81 mg PO QAM atorvastatin 20 mg PO PM cholecalciferol (vitamin D3) [Vitamin D3] 1,000 unit PO PM lisinopril 10 mg PO QAM lisinopril 20 mg PO QPM metoprolol tartrate 50 mg PO BID multivitamin 1 tab PO QAM DO NOT take the morning of surgery lisinopril 10 mg PO QAM multivitamin 1 tab PO QAM Take morning of surgery With a small sip of water, OTHERWISE NOTHING TO EAT OR DRINK AFTER MIDNIGHT: aspirin 81 mg PO QAM metoprolol tartrate 50 mg PO BID Take evening before surgery atorvastatin 20 mg PO PM cholecalciferol (vitamin D3) [Vitamin D3] 1,000 unit PO PM lisinopril 20 mg PO QPM metoprolol tartrate 50 mg PO BID Other Notes If you have any questions please call us at [phone] or [phone] or [phone] or [phone]
[2019-01-03 10:06] LABS: Basophils # (auto) 0.06 K/uL (0-0.2); Basophils % (auto) 0.9 %; Eosinophils # (auto) 0.15 K/uL (0-0.5); Eosinophils % (auto) 2.2 %; Hematocrit (blood only) 39.5 % (42-52); Hemoglobin 13.2 g/dL (14.0-18.0); Immature Granulocytes # (auto) 0.02 K/uL (0.00-0.02); Immature Granulocytes % (auto) 0.3 %; Lymphocytes # (auto) 1.38 K/uL (1.2-3.4); Lymphocytes % (auto) 20.6 %; Mean Corpuscular Hgb Conc 33.4 g/dL (32-36); Mean Corpuscular Volume 93.2 fL (80-100); Mean Platelet Volume 10.5 fL (7.4-10.4); Monocytes # (auto) 0.85 K/uL (0.11-0.59); Monocytes % (auto) 12.7 %; Neutrophils # (auto) 4.23 K/uL (1.4-6.5); Neutrophils % (auto) 63.3 %; Platelet Count 188 K/uL (130-400); RDW Standard Deviation 47.8 fL (36.4-46.3); Red Blood Count 4.24 M/uL (4.7-6.1); White Blood Count 6.69 K/uL (4.8-10.8)
[2019-01-03 10:07] LABS: Appearance Urine Clear (Clear); Bilirubin Urine Negative (Negative); Color Urine Yellow; Glucose Urine UA Negative (Negative); Ketones Urine Negative (Negative); Leukocyte Esterase Urine Negative (Negative); Nitrite Urine Negative (Negative); Protein Urine Negative (Negative); Specific Gravity Urine 1.016 (1.000-1.030); Urobilinogen Urine Negative (Negative); pH Urine 5.5 (4.5-7.5)
--- NOTE | 2019-01-03 10:15 | XRay Report ---
XR chest Pre-admission PA/Lat CLINICAL HISTORY: 73 years-old Male presenting with preoperative assessment. TECHNIQUE: PA and lateral views of the chest were obtained. COMPARISON: 10/03/2016. FINDINGS: Median sternotomy wires and mediastinal surgical clips noted. Atherosclerosis of the aortic arch. Car diac silhouette mildly enlarged. Lungs and pleural spaces clear. Degenerative changes of the thoracic spine. Degenerative changes of the shoulders. Upper abdomen normal. IMPRESSION: 1. Mild cardiomegaly. No other convincing evidence of acute cardiopulmonary disease. Electronically signed by: Tommie Etienne M.D. 01/03/2019 10:13 AM
[2019-01-03 10:17] LABS: INR 1.1 (0.9-1.1); Partial Thromboplastin Time 26.5 Seconds (21.0-31.0); Prothrombin Time 11.4 Seconds (9.0-12.0)
[2019-01-03 10:22] LABS: Albumin Level 3.8 gm/dl (3.4-5.0); BUN Creatinine Ratio 18.8 (10-20); Calcium 9.3 mg/dl (8.5-10.1); Creatinine Clr Calc Pharmacy 64.9 ml/min; Est GFR (African American) 67.4; Est GFR (Non-African American) 58.1; Potassium 4.3 mmol/L (3.5-5.1)
[2019-01-03 10:25] LABS: Bilirubin,Total 0.5 mg/dl (0.2-1); Total Protein 7.8 gm/dl (6.4-8.2)
--- NOTE | 2019-01-16 09:18 | History & Physical Report ---
Date of Service January 16, 2019 Assessment & Plan (1) Degenerative joint disease of right hip: plan is to admit and undergo a right total hip arthroplasty. History of Present Illness Chief Complaint: right hip and groin pain Primary Care Provider: Manfred Zurita pt with right hip and groin pain for years. having trouble doing activities of daily living. Limping alot. has tried nsaids and pt without relief. Allergies Allergy/AdvReac Type Severity Reaction Status Date / Time No Known Allergies Allergy Unverified 12/31/18 10:03 Home Medications Home Medications Medication Instructions Recorded Confirmed Type aspirin 81 mg PO QAM 12/31/18 12/31/18 History atorvastatin 20 mg PO PM 12/31/18 12/31/18 History cholecalciferol (vitamin D3) 1,000 unit PO PM 12/31/18 12/31/18 History [Vitamin D3] lisinopril 10 mg PO QAM 12/31/18 12/31/18 History lisinopril 20 mg PO QPM 12/31/18 12/31/18 History metoprolol tartrate 50 mg PO BID 12/31/18 12/31/18 History multivitamin 1 tab PO QAM 12/31/18 12/31/18 History Past Med/Surg History Medical History Aortic stenosis "Mild" per 12/28/18 ECHO; AYLIN 1.11cm2, MG 18mmhg CAD (coronary artery disease) CABG X 3 (2012) Hearing deficit B/L PEREZ History of bladder cancer S/P SX, BCG TREATMENTS History of coronary artery bypass graft CABG X 3 (2012) History of gout History of skin cancer REMOVED Hyperlipidemia Hypertension Osteoarthritis Surgical History History of arthroscopy of right knee History of cardiac cath 2013- subsequent CABG X 3 2016- medical management recommended History of carpal tunnel release BL History of colonoscopy W/ POLYPECTOMY History of cystoscopy MULTIPLE History of foot surgery LEFT FOOT X 15 History of left hip replacement Left ISAK: 10/21/16: SAB at [facility] History of repair of rotator cuff BL History of surgery TURBT: 08/20/17: LMA#5 at [facility] History of tooth extraction Status post tendon repair RT ELBOW Family History Mother Family history of diabetes mellitus Grandmother (Maternal) Family history of diabetes mellitus Brother Family hx of colon cancer Uncle Family hx of colon cancer Family/Other Family hx of colon cancer COUSIN Social History Preferred Language: Spanish Communication Ability: Effective Beliefs That Will Affect Care: None Current Living Situation: Spouse Feels Safe at Home: Yes Smoking Status: Former smoker Tobacco Type: cigarettes Second Hand Exposure: Yes (IN THE PAST) Hx Alcohol Use: Yes Alcohol type: beer Hx Substance Use: No Review of Systems All systems reviewed & are unremarkable except as noted in HPI & below Physical Exam Constitutional: WD/WN, vitals as above Neck: trachea midline, no thyromegaly Respiratory: normal respiratory effort, lungs clear to auscultation Cardiovascular: RRR, no murmur, no edema Gastrointestinal (Abdomen): normal bowel sounds, soft, nontender, no hepatosplenomegaly Musculoskeletal: Hip: + limited ROM of hip and + hip ROM with crepitation
[2019-01-17] MEDS ORDERED: dexAMETHasone 4 MG TAB PO SCH (06:00)
[2019-01-17] MEDS ORDERED: LR 500ML BOLUS, THEN 15ML/HR IV SCH (06:00)
[2019-01-17] MEDS ORDERED: ACETAMINOPHEN 500 MG TAB PO SCH (06:00)
[2019-01-17] MEDS ORDERED: METOCLOPRAMIDE HCL 10 MG TABLET PO SCH (06:00)
[2019-01-17] MEDS ORDERED: LR 60ML/HR IV SCH (06:00)
[2019-01-17] MEDS ORDERED: ROPIVACAINE 0.5% HCL/PF 150 MG, BUPIVACAINE 0.5% MPF 30 ML, EPINEPHrine 30MG/30ML (OR U... INFIL SCH (06:00)
[2019-01-17] MEDS ORDERED: CeleBREX 200 MG CAP PO SCH (06:00)
[2019-01-17] MEDS ORDERED: FAMOTIDINE 20 MG TAB PO SCH (06:00)
[2019-01-17] MEDS ORDERED: TRANEXAMIC ACID 1,000 MG **IV Pre-op IV SCH (06:00)
[2019-01-17] MEDS ORDERED: CEFAZOLIN 2000MG 2,000 MG/15 ML SYR IV SCH (06:00)
[2019-01-17] MEDS ORDERED: TRANEXAMIC ACID 1,000 MG **IV Intra-op IV SCH (06:30)
[2019-01-17] MEDS ORDERED: BUPIVACAINE 0.5 % 5 MG/1 ML PF 10ML VIAL ONE (06:32)
--- NOTE | 2019-01-17 06:40 | History & Physical Bridge Note ---
Date of Service January 17, 2019 History & Physical Bridge Note I have examined the patient, reviewed the History & Physical and in the interval since the performance of the History & Physical I have noted the following changes of clinical significance: no changes noted
[2019-01-17] MEDS ORDERED: PROPOFOL IV EMULSION 10 MG/ML 20 ML VIAL IV ONE (07:17)
[2019-01-17] MEDS ORDERED: PHENYLEPHRINE 100MCG/ML 5ML SYR ONE (07:17)
[2019-01-17] MEDS ORDERED: ePHEDrine sulfate 50 MG/ML SYR ONE (07:17)
[2019-01-17] MEDS ORDERED: fentaNYL citrate 100 MCG/2 ML VIAL ONE (07:17)
[2019-01-17] MEDS ORDERED: LIDOCAINE HCL 2% 2 ML VIAL/AMP(20MG/ML) INFIL ONE (07:17)
[2019-01-17] MEDS ORDERED: MIDAZOLAM HCL 1 MG/ML 2ML VIAL ONE (07:17)
[2019-01-17] MEDS ORDERED: BACITRACIN INJ 50,000 UNIT VIAL ONE (07:26)
[2019-01-17] MEDS ORDERED: ORTHO JOINT ANESTHETIC ONE (07:26)
[2019-01-17] MEDS ORDERED: KETOROLAC 30 MG/ML VIAL IV PRN (07:38)
[2019-01-17] MEDS ORDERED: ATROPINE SULFATE 0.1 MG/ML 10ML SYR IV PRN (07:38)
[2019-01-17] MEDS ORDERED: ONDANSETRON INJ 2 MG/ML 2 ML VIAL IV PRN ×2 (07:38→10:28)
[2019-01-17] MEDS ORDERED: ePHEDrine sulfate 50 MG/ML AMP IV PRN (07:38)
[2019-01-17] MEDS ORDERED: HYDROmorphone INJ 1 MG/ML SYRINGE IV PRN (07:38)
--- NOTE | 2019-01-17 09:15 | Operative Report ---
Post Operative Report Pre & Post Diagnosis Operation Date: 01/17/19 08:30 Pre-Op Diagnosis: Right Hip Osteoarthritis Post-Op Diagnosis: Right Hip Osteoarthritis Procedure Operation Date: 01/17/19 08:30 Actual Procedures p Right Total Hip Arthroplasty(Right) - Kenroy Sin Surgeon Kenroy Sin Reservation Sales Agent Иван Kelley PA-C Estimated Blood Loss 30 Findings Consistent with Post-Op Diagnosis Specimens None Complications none Disposition Disposition: Recovery Room Description of Procedure IMPLANTS USED: [place] size 58 mm Trident 2 Tritanium acetabular cup, one acetabular screw, 36 mm X3 elevated liner, a #7 Accolade 2 stem with a 27 degree neck, 36 mm +0 ceramic head INDICATIONS: Mr. River is a pleasant man who has unfortunately failed all forms of conservative measures. Therefore, they have has decided to undergo elective surgical intervention. All risks and benefits of the surgery were discussed with the patient and the family in entirety. PROCEDURE: The patient was brought to the operating room and properly identified by myself, anesthesia, and staff. Patient was given a spine anesthetic and placed on the operating table with the right hip up. The hip was then prepped and draped in the standard orthopedic fashion. We made a standard posterolateral approach over the greater trochanteric area. We then dissected down to subcutaneous tissue until the fascia was identified. We incised the fascia in line with the skin incision. We then split the gluteus nataliia muscles with finger dissection. We then put the Charnley retractor in place. We placed the retractor underneath the gluteus medius to expose the piriformis. The piriformis was then tagged with a tag suture and released from the insertion from the greater trochanteric area with the use of electrocautery. We then performed a T capsulotomy and the femoral head and neck were atraumatically dislocated. We then performed femoral neck osteotomy at the pre-template site. We removed the femoral head and neck without difficulty. We then placed the retractor around the acetabulum. We then began to ream the acetabulum to the appropriate size. We then impacted the cup into place and had a very good fixation within the pelvis. We then put the liner in place as well. Then using multiple size approaches from the Accolade 2 system a size #7 fit very nicely in the proximal femur. I then put trial components in place. WE had very good range of motion, excellent stability, and excellent leg length equality. We removed the trial components and irrigated the wound. We then impacted the components in place and irrigated the wound once more. We then closed the capsule and fascia with a 0 Vicryl suture, the deep dermis with 2-0 Vicryl suture, and finally the skin with a running 3-0 Vicryl subcuticular stitch. A sterile dressing was applied. The patient was taken to the recovery room in stable condition. Due to the complex nature of the procedure, the entire surgery was performed with the operational assistance of Иван Kelley PA-C. The assistant sales director was under direct supervision, was involved in the actual performance of all aspects of the surgical procedure including hemostasis, tissue retraction and incision, instrument management, patient positioning, and wound closure. I attest to the content of the Intraoperative Record and any orders documented therein. Any exceptions are noted below.
--- NOTE | 2019-01-17 10:07 | Anesthesiology Progress Note ---
Date of Service January 17, 2019 Anesthesia Post Procedure Vital Signs Vital Signs: Temp Pulse Pulse Resp BP Pulse Ox 01/17/19 10:00 56 L 14 138/78 100 01/17/19 09:50 58 L 13 143/67 H 100 01/17/19 09:40 55 L 22 145/66 H 100 01/17/19 09:33 36.3 C L 57 L 13 129/78 100 01/17/19 06:30 36.6 C 72 18 159/82 H 96 Pain Intensity Right Hip: Pain Intensity: 0 Transfer of Care Handoff Completed per policy Notes Mental Status: alert / awake / arousable Patient Amnestic to Procedure: Yes Nausea / Vomiting: adequately controlled Pain: adequately controlled Airway Patency, RR, SpO2: stable & adequate BP & HR: stable & adequate Hydration State: stable & adequate Anesthetic Complications: no major complications apparent
[2019-01-17] MEDS ORDERED: OXYCODONE HCL IR 5 MG TAB (IMMEDIATE RELEASE) PO PRN (10:28)
[2019-01-17] MEDS ORDERED: BISACODYL 10 MG SUPP PR PRN (10:28)
[2019-01-17] MEDS ORDERED: METOCLOPRAMIDE HCL INJ 5 MG/ML 2 ML VIAL IV PRN (10:28)
[2019-01-17] MEDS ORDERED: NALOXONE HCL 0.4 MG/1 ML VIAL/CARP IV PRN (10:28)
[2019-01-17] MEDS ORDERED: MAGNESIUM HYDROXIDE SUSP 30 ML UDC PO PRN (10:28)
[2019-01-17] MEDS: SODIUM CHLORIDE 0.9% 1000ML 1,000 ML IV SCH ×2 (13:23→21:34)
[2019-01-17] MEDS ORDERED: TRANEXAMIC ACID 1,000 MG in 0.9 % SODIUM CHLORIDE 100 ML IV SCH (15:09)
[2019-01-17] MEDS: CEFAZOLIN 2000MG 2,000 MG/15 ML SYR IV SCH ×2 (17:30→23:25)
[2019-01-17] MEDS: ACETAMINOPHEN 500 MG TAB PO SCH ×2 (17:30→23:25)
[2019-01-17] MEDS ORDERED: ATORVASTATIN 20 MG TAB PO SCH (21:00)
[2019-01-17] MEDS ORDERED: SENNA 8.6 MG TAB PO SCH (21:00)
[2019-01-17] MEDS ORDERED: LISINOPRIL 20 MG TAB PO SCH (21:00)
[2019-01-17] MEDS: ASPIRIN 81 MG ECTAB PO SCH (21:30)
[2019-01-17] MEDS: METOPROLOL TARTRATE 50 MG TAB PO SCH (21:31)
[2019-01-17] MEDS: DOCUSATE SODIUM 100 MG CAP PO SCH (21:31)
[2019-01-17] MEDS: TRAMADOL HCL 50 MG TABLET PO PRN (21:34)
[2019-01-18 06:36] LABS: Hematocrit (blood only) 32.4 % (42-52); Hemoglobin 10.7 g/dL (14.0-18.0); Immature Granulocytes # (auto) 0.06 K/uL (0.00-0.02); Immature Granulocytes % (auto) 0.4 %; Lymphocytes # (auto) 0.91 K/uL (1.2-3.4); Lymphocytes % (auto) 5.9 %; Mean Corpuscular Volume 93.6 fL (80-100); Mean Platelet Volume 10.1 fL (7.4-10.4); Monocytes # (auto) 1.59 K/uL (0.11-0.59); Monocytes % (auto) 10.2 %; Neutrophils # (auto) 12.99 K/uL (1.4-6.5); Neutrophils % (auto) 83.5 %; Platelet Count 184 K/uL (130-400); RDW Coefficient of Variation 13.9 % (11.5-14.5); RDW Standard Deviation 47.3 fL (36.4-46.3); Red Blood Count 3.46 M/uL (4.7-6.1); White Blood Count 15.55 K/uL (4.8-10.8)
[2019-01-18] MEDS: ACETAMINOPHEN 500 MG TAB PO SCH (07:11)
[2019-01-18 07:17] LABS: BUN Creatinine Ratio 19.9 (10-20); Calcium 8.3 mg/dl (8.5-10.1); Creatinine Clr Calc Pharmacy 53.8 ml/min; Est GFR (African American) 53.1; Est GFR (Non-African American) 45.8; Potassium 4.9 mmol/L (3.5-5.1)
--- NOTE | 2019-01-18 07:50 | Anesthesiology Progress Note ---
Date of Service January 18, 2019 Anesthesia Post Procedure Vital Signs Vital Signs: Temp Pulse Pulse Pulse Resp BP Pulse Ox 01/18/19 06:48 36.6 C 62 18 146/74 H 96 01/18/19 03:30 36.6 C 72 18 143/62 H 95 01/17/19 23:05 36.6 C 78 18 149/65 H 92 01/17/19 19:37 36.7 C 95 H 18 160/72 H 95 01/17/19 15:28 36.4 C L 74 16 115/64 93 01/17/19 13:30 36.5 C 74 17 166/74 H 94 01/17/19 12:27 36.5 C 68 17 155/77 H 98 01/17/19 11:32 36.4 C L 64 17 144/65 H 100 01/17/19 11:00 35.7 C L 53 L 17 151/77 H 100 01/17/19 10:30 36.4 C L 55 L 16 147/79 H 100 01/17/19 10:10 36.4 C L 55 L 14 136/74 100 01/17/19 10:00 56 L 14 138/78 100 01/17/19 09:50 58 L 13 143/67 H 100 01/17/19 09:40 55 L 22 145/66 H 100 01/17/19 09:33 36.3 C L 57 L 13 129/78 100 Pain Intensity Right Hip: Pain Intensity: 5 Notes Mental Status: alert / awake / arousable and participated in evaluation Patient Amnestic to Procedure: Yes Nausea / Vomiting: adequately controlled Pain: adequately controlled Airway Patency, RR, SpO2: stable & adequate BP & HR: stable & adequate Hydration State: stable & adequate Neuraxial Anesthesia: was administered and sensory block resolved Anesthetic Complications: no major complications apparent and Pt Satisfied with anesthetic care
[2019-01-18] MEDS ORDERED: dexAMETHasone 10 MG in SYRINGE 0 ML IV SCH (08:00)
[2019-01-18] MEDS: DOCUSATE SODIUM 100 MG CAP PO SCH ×2 (08:32→08:39)
[2019-01-18] MEDS: ASPIRIN 81 MG ECTAB PO SCH (08:32)
[2019-01-18] MEDS: METOPROLOL TARTRATE 50 MG TAB PO SCH (08:32)
--- NOTE | 2019-01-18 08:35 | Orthopedic Progress Note ---
Date of Service January 18, 2019 Assessment & Plan (1) Degenerative joint disease of right hip: Postop day 1 status post right total hip arthroplasty. PT/OT protocols. Weightbearing as tolerated. DVT prophylaxis with aspirin twice daily, SCDs, KANDIS padilla. Pain management with oxycodone or tramadol. DC planning-planning for discharge to home with home health services today if he is progressing well and his PT Subjective Postop day 1 status post right total hip arthroplasty. Patient is awake and alert and oriented and is sitting up in his bed eating his breakfast. He has no complaints this morning. Pain is controlled. Denies shortness of breath, chest pain, lightheadedness. He is planning on going home today with home health services. Physical Exam Physical Exam: Silverlon dressing has some drainage in the dressing window. Hemovac had 25 cc out from the latest shift. Calves are soft and nontender. Neurovascular is intact. Toes are mobile. Leg lengths appear equal. Results & Data Vital Signs (Past 12 Hours) Vital Signs Temp Pulse Resp BP Pulse Ox 01/18/19 06:48 36.6 C 62 18 146/74 H 96 01/18/19 03:30 36.6 C 72 18 143/62 H 95 01/17/19 23:05 36.6 C 78 18 149/65 H 92 Laboratory Results Laboratory Results WBC 15.55 K/uL (4.8-10.8) H 01/18/19 06:20 RBC 3.46 M/uL (4.7-6.1) L 01/18/19 06:20 Hgb 10.7 g/dL (14.0-18.0) L 01/18/19 06:20 Hct 32.4 % (42-52) L 01/18/19 06:20 MCV 93.6 fL (80-100) 01/18/19 06:20 MCH 30.9 pg (25-34) 01/18/19 06:20 MCHC 33.0 g/dL (32-36) 01/18/19 06:20 RDW Std Deviation 47.3 fL (36.4-46.3) H 01/18/19 06:20 RDW Coeff of Sandra 13.9 % (11.5-14.5) 01/18/19 06:20 Plt Count 184 K/uL (130-400) 01/18/19 06:20 MPV 10.1 fL (7.4-10.4) 01/18/19 06:20 Immature Gran % (Auto) 0.4 % 01/18/19 06:20 Neut % (Auto) 83.5 % 01/18/19 06:20 Lymph % (Auto) 5.9 % 01/18/19 06:20 [place] % (Auto) 10.2 % 01/18/19 06:20 Eos % (Auto) 0.0 % 01/18/19 06:20 Baso % (Auto) 0.0 % 01/18/19 06:20 Immature Gran # (Auto) 0.06 K/uL (0.00-0.02) H 01/18/19 06:20 Neut # (Auto) 12.99 K/uL (1.4-6.5) H 01/18/19 06:20 Lymph # (Auto) 0.91 K/uL (1.2-3.4) L 01/18/19 06:20 [place] # (Auto) 1.59 K/uL (0.11-0.59) H 01/18/19 06:20 Eos # (Auto) 0.00 K/uL (0-0.5) 01/18/19 06:20 Baso # (Auto) 0.00 K/uL (0-0.2) 01/18/19 06:20 PT 11.4 Seconds (9.0-12.0) 01/03/19 09:14 INR 1.1 (0.9-1.1) 01/03/19 09:14 APTT 26.5 Seconds (21.0-31.0) 01/03/19 09:14 PTT Ratio 1.0 01/03/19 09:14 Sodium 139 mmol/L (136-145) 01/18/19 06:20 Potassium 4.9 mmol/L (3.5-5.1) 01/18/19 06:20 Chloride 108 mmol/L (98-107) H 01/18/19 06:20 Carbon Dioxide 24 mmol/L (21-32) 01/18/19 06:20 Anion Gap 7.0 (3-11) 01/18/19 06:20 BUN 30 mg/dl (7-18) H 01/18/19 06:20 Creatinine 1.51 mg/dl (0.6-1.4) H 01/18/19 06:20 Est Cr Clr Drug Dosing 53.8 ml/min 01/18/19 06:20 Est GFR ( Amer) 53.1 01/18/19 06:20 Est GFR (Non-Af Amer) 45.8 01/18/19 06:20 BUN/Creatinine Ratio 19.9 (10-20) 01/18/19 06:20 Glucose 163 mg/dl (70-99) H 01/18/19 06:20 POC Glucose 114 (70-99) H 01/17/19 06:31 Calcium 8.3 mg/dl (8.5-10.1) L 01/18/19 06:20 Total Bilirubin 0.5 mg/dl (0.2-1) 01/03/19 09:14 AST 14 U/L (15-37) L 01/03/19 09:14 ALT 23 U/L (12-78) 01/03/19 09:14 Alkaline Phosphatase 56 U/L (45-117) 01/03/19 09:14 Total Protein 7.8 gm/dl (6.4-8.2) 01/03/19 09:14 Albumin 3.8 gm/dl (3.4-5.0) 01/03/19 09:14 Globulin 4.0 gm/dl (2.5-4.0) 01/03/19 09:14 Albumin/Globulin Ratio 1.0 (0.9-2) 01/03/19 09:14 Urine Color Yellow 01/03/19 09:14 Urine Appearance Clear (Clear) 01/03/19 09:14 Urine pH 5.5 (4.5-7.5) 01/03/19 09:14 Ur Specific [place] 1.016 (1.000-1.030) 01/03/19 09:14 Urine Protein Negative (Negative) 01/03/19 09:14 Urine Glucose (UA) Negative (Negative) 01/03/19 09:14 Urine Ketones Negative (Negative) 01/03/19 09:14 Urine Blood Negative (Negative) 01/03/19 09:14 Urine Nitrite Negative (Negative) 01/03/19 09:14 Urine Bilirubin Negative (Negative) 01/03/19 09:14 Urine Urobilinogen Negative (Negative) 01/03/19 09:14 Ur Leukocyte Esterase Negative (Negative) 01/03/19 09:14 Nasal Screen MRSA (PCR) Negative (Negative) 01/03/19 09:14 Blood Type O Negative 01/03/19 09:14 Antibody Screen NEGATIVE 01/03/19 09:14
[2019-01-18] MEDS: TRAMADOL HCL 50 MG TABLET PO PRN (08:36)
[2019-01-18] MEDS ORDERED: MULTIVITAMIN TAB PO SCH (09:00)
[2019-01-18] MEDS ORDERED: LISINOPRIL 10 MG TAB PO SCH (09:00)
--- NOTE | 2019-01-21 14:25 | Discharge Summary ---
DISCHARGE DIAGNOSIS: Degenerative joint disease, right hip. SECONDARY DIAGNOSES: History of aortic stenosis, CAD with CABG x3, hearing deficit, history of bladder carcinoma, gout, skin carcinoma, hyperlipidemia, hypertension. CONSULTS: None. COMPLICATIONS: None. PROCEDURES: Right total hip arthroplasty performed by Dr. Sin on 01/17/2019. BRIEF HISTORY: As dictated in the history and physical. HOSPITAL SUMMARY: The patient was admitted on the above-noted date and had the above-noted surgery performed, which he tolerated well. On the first postoperative day, patient was awake, alert and oriented, sitting up in bed eating his breakfast. He had no complaints that morning. Pain was controlled. Denied shortness of breath, chest pain or lightheadedness and was planning on going home that day with home health services. Silverlon dressing had some drainage noted on the window Hemovac and 25 mL from the latest shift. Calves were soft, nontender. Neurovascularly was intact and toes were mobile. Leg lengths appeared equal. Vital signs were stable. He was afebrile and hemoglobin was 10.7. He was started on PT and OT protocols DVT prophylaxis and pain management. He progressed well with his physical therapy and was remaining stable and it was felt that he could be discharged to home on 01/18/2019. For further review, please see chart. LABORATORY AND X-RAY DATA: As per chart. DISCHARGE INSTRUCTIONS: The patient was discharged home in satisfactory condition on 01/18/2019. DIET: Regular. ACTIVITY: Weightbearing as tolerated right lower extremity. Follow [facility] instruction sheets and special care instructions from Dr. Sin's instruction sheets and follow up with Dr. Sin in 2 weeks. The patient to call for appointment if one has not been made for you. DISCHARGE MEDICATIONS: Acetaminophen 1000 mg p.o. q. 8 hours, aspirin 81 mg p.o. b.i.d. for 30 days, cefadroxil 500 mg p.o. b.i.d., sennoside 17.2 mg p.o. at bedtime. Resume home meds as listed and stop taking previous aspirin dosage.
== END 2019-01-18 13:03 | disposition home health service (06) | DRG 470 ==
LOC: ASU 05:56 → 3E 09:41